=== PATIENT | female | born 1950 | race Caucasian/White ===

== ENCOUNTER 2016-12-29 17:34 | Inpatient (IN) | payer OTHER ==
[~2016-12-29] VITALS: Ht 152.4 cm; Wt 95.0 kg
[2016-12-29 18:20] LABS: BASO % 0.3 % (0.0-2.0); EOS % 0.5 % (0-4.0); GRAN # 7.1 (1.4-6.5); GRAN % 80.3 % (42.2-75.2); HEMATOCRIT 37.8 % (37.0-47.0); HEMOGLOBIN 12.7 g/dl (12.5-16.0); LYMPH # 1.1 (1.2-3.4); LYMPH % 12.6 % (20.0-51.0); MEAN CELL VOLUME 85 fl (80.0-100.0); MEAN CORPUSCULAR HEMOGLOBIN 29 pg (27.0-31.0); MEAN CORPUSCULAR HGB CONC 34 g/dl (33.0-37.0); MEAN PLATELET VOLUME 8.9 fl (7.4-10.4); MONO # 0.5 (0.1-0.6); MONO % 6.1 % (1.7-9.3); PLATELET COUNT 233 K/mm3 (130-400); RED BLOOD COUNT 4.46 M/mm3 (4.10-5.30); REDCELL DISTRIBUTION WIDTH-CV 14.7 % (11.5-14.5); WHITE BLOOD COUNT 8.9 K/mm3 (4.8-10.8)
[2016-12-29 18:22] LABS: PH 6 (5-8); SQUAMOUS EPITHELIAL 0-2 /hpf; URINE APPEARANCE Clear; URINE BACTERIA Rare /hpf; URINE BILIRUBIN Negative (NEGATIVE); URINE BLOOD 1+ (NEGATIVE); URINE COLOR Straw; URINE GLUCOSE Negative (NEGATIVE); URINE KETONE Negative (NEGATIVE); URINE RBC 0-2 /hpf; URINE UROBILINOGEN Negative (NEGATIVE); URINE WBC 0-2 /hpf
[2016-12-29 18:33] LABS: ADJUSTED CALCIUM 9.5 mg/dL (8.4-10.2); ALANINE AMINOTRANSFERASE 36 U/L (9-52); ALBUMIN 4.5 gm/dL (3.5-5.0); ALKALINE PHOSPHATASE 91 U/L (50-136); ANION GAP 12 mmol/L (7-16); BILIRUBIN,TOTAL 1.4 mg/dL (0.0-1.0); BLOOD UREA NITROGEN 20 mg/dL (7-17); CALCIUM 9.9 mg/dL (8.4-10.2); CARBON DIOXIDE 24 mmol/L (22-30); CHLORIDE 103 mmol/L (98-107); CREATINE KINASE 42 U/L (30-135); CREATININE, serum 0.64 mg/dL (0.52-1.25); GLUCOSE 99 mg/dL (74-106); POTASSIUM 4.5 mmol/L (3.4-5.0); SODIUM 139 mmol/L (137-145); TOTAL PROTEIN 7.2 gm/dL (6.4-8.2)
[2016-12-29 18:41] LABS: B-TYPE NATRIURETIC PEPTIDE 47 pg/mL (0-125)
[2016-12-29 18:50] LABS: TROPONIN-I < 0.012 ng/mL (0.000-0.034)
[2016-12-29 21:03] VITALS: BP 157/87; PULSE 93; TEMP 98.5
[2016-12-30] VITALS (7 sets, daily range): BP systolic 121–180; BP diastolic 50–160; PULSE 77–108; TEMP 97.6–98.5
[2016-12-31 00:20] VITALS: BP 132/63; PULSE 95; TEMP 98
[2016-12-31 03:45] VITALS: BP 137/48; PULSE 85; TEMP 98
[2016-12-31 07:48] VITALS: BP 154/73; PULSE 88; TEMP 98.2
[2016-12-31 08:09] LABS: CALCIUM 9.6 mg/dL (8.4-10.2); CREATININE, serum 0.55 mg/dL (0.52-1.25); POTASSIUM 3.9 mmol/L (3.4-5.0)
[2016-12-31 11:29] VITALS: BP 140/70; PULSE 88; TEMP 98.4
[2016-12-31 15:02] VITALS: BP 151/65; PULSE 83; TEMP 98.6
[2016-12-31 19:28] VITALS: BP 155/82; PULSE 91; TEMP 97.9
[2017-01-01 00:50] VITALS: BP 140/69; PULSE 90; TEMP 97.8
[2017-01-01 04:38] VITALS: BP 153/72; PULSE 68; PULSE 84; TEMP 97.8
[2017-01-01 07:47] LABS: CALCIUM 10.4 mg/dL (8.4-10.2); CREATININE, serum 0.59 mg/dL (0.52-1.25); POTASSIUM 3.9 mmol/L (3.4-5.0)
[2017-01-01 08:01] VITALS: BP 146/54; PULSE 87; TEMP 98.1
[2017-01-01 11:25] VITALS: BP 180/79; PULSE 97; TEMP 98.1
[2017-01-01 15:21] VITALS: BP 154/78; PULSE 107
== END 2017-01-01 19:38 | disposition other institution (70) | DRG 641 ==
LOC: COL.ER 17:34 → MEDICAL 19:04
PROVIDERS: Emergency Medicine; Physician Assistant
DX: E86.0 Dehydration (principal); F25.9 Schizoaffective disorder, unspecified; I87.2 Venous insufficiency (chronic) (peripheral)
CPT/HCPCS: 90791-AI; 99222-AI; 99232-AI; J1650; J7030